=== PATIENT | female | born 1945 | race Caucasian/White ===

== ENCOUNTER 2022-11-15 07:17 | Emergency (ER) | payer OTHER ==
[2022-11-15] MEDS ORDERED: Losartan Potassium 50 MG TAB ONE (07:39)
== END 2022-11-15 08:15 | disposition home or self-care (01) ==
LOC: NAV ERS 07:17
DX: I10 Essential (primary) hypertension (principal); E78.00 Pure hypercholesterolemia, unspecified; Z79.899 Other long term (current) drug therapy
CPT/HCPCS: 99283